=== PATIENT | male | born 1940 | race Caucasian/White ===

== ENCOUNTER 2018-09-29 06:19 | Day surgery (SDC) | payer MEDICARE ==
[2018-09-25 10:57] LABS: BASOPHILS % (AUTO) 0.3 % (0.0-5.0); EOSINOPHILS % (AUTO) 1.7 % (0.0-8.0); HEMATOCRIT 42.5 % (42-54); LYMPHOCYTES % (AUTO) 26.1 % (21.0-51.0); MEAN CORPUSCULAR HEMOGLOBIN 30.5 pg (27.0-33.0); MEAN CORPUSCULAR HGB CONC 33.9 g/dL (32.0-36.0); MONOCYTES % (AUTO) 8.8 % (3.0-13.0); NEUTROPHILS % (AUTO) 63.1 % (40.0-77.0); PLATELET COUNT (AUTO) 169 K/uL (130-400); RED BLOOD CELL COUNT(AUTO) 4.72 MIL/uL (4.50-6.20); RED CELL DISTRIBUTION WIDTH 14.1 % (11.0-15.5); WHITE BLOOD COUNT (AUTO) 4.2 K/uL (4.8-10.8)
[2018-09-25 11:00] VITALS: BP 136/79
[2018-09-25 11:06] LABS: CREATININE 0.8 mg/dL (0.5-1.5); POTASSIUM 4.5 mmol/L (3.5-5.1)
[2018-09-25 11:55] LABS: INR 1.99 (0.85-1.15); PROTHROMBIN TIME 20.6 SEC (9.6-11.6)
--- NOTE | 2018-09-26 11:45 | NUR ---
EKg Dr Hector reviewed Ekg, no new orders, ok to proceed
--- NOTE | 2018-09-26 14:24 | NUR ---
PT, INR reported PT INR drawn 09/25/[address] Tavarez, orders to repeat morning of procedure
[2018-09-29] VITALS (18 sets, daily range): BP systolic 112–132; BP diastolic 56–90
[~2018-09-29] VITALS: Ht 177.8 cm; Wt 130.5 kg
[~2018-09-29 06:19] MED LIST: ASCO10007 PO; ATOR10 PO; BETA1TAB20 PO; FE F1CAP8 PO; IBUP-2070 PO; LACTATED RINGERS 1000ML 1,000 ML IV SCH; MULT-1203 PO; TAMS0.4C32 PO; WARF6TAB49 PO
[2018-09-29 07:18] LABS: INR 1.09 (0.85-1.15); PARTIAL THROMBOPLASTIN TIME 28.6 SEC (26.3-35.5); PROTHROMBIN TIME 11.4 SEC (9.6-11.6)
[2018-09-29] MEDS ORDERED: MIDAZOLAM HCL 1 MG/ML 2ML VIAL ONE (09:26)
[2018-09-29] MEDS ORDERED: PROPOFOL 10 MG/ML 20ML VIAL IV ONE (09:26)
[2018-09-29] MEDS ORDERED: FENTANYL CITRATE PF 50 MCG/1 ML 2ML VIAL ONE (09:26)
[2018-09-29] MEDS: CEFAZOLIN SODIUM 1 GM VIAL IVP PRN ×2 (09:40→10:50)
--- NOTE | 2018-09-29 11:55 | NUR ---
ASSESSMENT RECEIVED PT FROM PACU STAFF GEORGERN. PT DOING WELL. DEINES ANY DISCOMFORT AT THIS TIME. [address] DRAINING TO GRAVITY AT BEDSIDE. AT BEDSIDE.
--- NOTE | 2018-09-29 12:55 | NUR ---
DISCHARGE ORAL AND WRITTEN DISCHARGE INSTRUCTIONS GIVEN TO PT AND PTS ALONG WITH PRESCRIPTION. GIVEN INSTRUCTIONS ON CHANGING PEARL BAG TO LEG BAG. VERBALIZED UNDERSTANDING. PRESCRIPTION GIVEN TO PTS . INSTRUCTED ON NOT RESUMING COUMADIN FOR 48 HOURS. BOTH VERBALIZED UNDERSTANDING. INSTRUCTED ON IMPORTANCE OD MONITORING SITE FOR EXCESSIVE BLEEDING. BOTH VERBALIZED UNDERSTANDING.
== END 2018-09-29 13:05 | disposition home or self-care (01) ==
LOC: DAH 06:19
PROVIDERS: ATTEND Surgery
DX: N35.912 Unspecified bulbous urethral stricture, male (principal); Z79.899 Other long term (current) drug therapy; Z98.890 Other specified postprocedural states; E66.01 Morbid (severe) obesity due to excess calories; M19.90 Unspecified osteoarthritis, unspecified site; I48.91 Unspecified atrial fibrillation; Z85.51 Personal history of malignant neoplasm of bladder; R97.20 Elevated prostate specific antigen [PSA]
CPT/HCPCS: 36415 ×2; 52281; 80048; 84153; 84154; 85025; 85610 ×2; 85730; 87088; 88108; 88305; 93005; A4218; A4344; A4358; A5113; J0690; J2250; J2704; J3010; J7120